=== PATIENT | female | born 1945 | race Caucasian/White ===

== ENCOUNTER 2024-05-02 09:02 | Observation (INO) ==
[2024-05-02] MEDS ORDERED: IOPAMIDOL 100 ML BOTTLE IV ONE (09:03)
[2024-05-02 09:38] LABS: Basophils % (Auto) 0.7 % (0.0-2.0); Eosinophils % (Auto) 4.6 % (0.0-7.0); Hematocrit 42.7 % (34.1-44.9); Hemoglobin 13.9 g/dL (11.2-15.7); Lymphocytes % (Auto) 25.5 % (15.5-49.0); Mean Cell Volume 92.6 fL (80.0-100.0); Mean Corpuscular HGB Conc 32.6 g/dL (31.0-36.0); Mean Platelet Volume 10.1 fL (8.8-12.5); Monocytes % (Auto) 7.4 % (1.0-12.0); Neutrophils % (Auto) 61.7 % (38.0-78.0); Platelet Count 197 K/mcL (140-440); RBC 4.61 M/mcL (3.59-5.38); Red Cell Distribution Width 12.4 % (11.5-14.5); WBC 7.3 K/mcL (4.5-11.0)
[2024-05-02 09:39] LABS: Basophils # (Auto) 0.05 K/mcL (0.00-0.30); Eosinophils # (Auto) 0.33 K/mcL (0.00-0.70); Lymphocytes # (Auto) 1.85 K/mcL (1.50-4.80); Monocytes # (Auto) 0.54 K/mcL (0.10-0.90)
[2024-05-02 10:06] LABS: INR 0.9 (0.9-1.1); Prothrombin Time 13.1 sec (11.9-14.5)
[2024-05-02 10:14] LABS: ALT/SGPT < 5 U/L (<40); AST/SGOT 21 U/L (<32); Albumin 4.1 gm/dL (3.2-5.2); Albumin/Globulin Ratio 1.6 (1.0-2.3); Alkaline Phosphatase 85 U/L (39-117); Bilirubin,Total 0.6 mg/dL (0.1-1.0); Blood Urea Nitrogen 10 mg/dL (8-23); Calcium 9.1 mg/dL (8.6-10.4); Carbon Dioxide 24 mmol/L (22-30); Chloride 107 mmol/L (96-108); Globulin 2.6 gm/dL (2.2-3.7); Glomerular Filtration Rate 69; Glucose 101 mg/dL (70-105); Potassium 4.2 mmol/L (3.3-5.1); Sodium 141 mmol/L (133-145)
[2024-05-02 11:30] LABS: Appearance,Urine Clear (Clear); Bilirubin,Urine Negative (Negative); Color,Urine Yellow; Culture Indicated,Urine No; Glucose,Urine (UA) Negative (Negative); Ketones,Urine Negative (Negative); Leukocyte Esterase,Urine Negative /uL (Negative); Nitrate,Urine Negative (Negative); PH,Urine 7.5 (5.0-9.0); Protein,Urine Negative (Negative); Specific Gravity,Urine 1.015 (1.000-1.035); Urine Blood Negative ery/mcL (Negative); Urine RBC 0 /hpf (0-3); Urine Squamous Epithelial Cell 0 /hpf (0-4); Urine WBC 0 /hpf (0-4); Urobilinogen,Urine Normal
[2024-05-02] MEDS: MECLIZINE 25 MG TABLET PO ONE (12:08)
[2024-05-02] MEDS: ATORVASTATIN 40 MG TABLET PO ONE (12:37)
[2024-05-02] MEDS: ASPIRIN 81 MG TAB.CHEW CHEWED ONE (12:37)
[2024-05-02] MEDS ORDERED: SENNOSIDES 1 TABLET PO PRN (17:32)
[2024-05-02] MEDS ORDERED: POLYETHYLENE GLYCOL 3350 17 GM PACKET PO PRN (17:32)
[2024-05-02] MEDS ORDERED: ONDANSETRON 4 MG/2 ML VIAL IV PRN (17:32)
[2024-05-02] MEDS: ACETAMINOPHEN 325 MG TABLET PO PRN (19:32)
[2024-05-02] MEDS: ACETAMINOPHEN 325 MG TABLET PO ONE (19:35)
[2024-05-02] MEDS: 0.9 % SODIUM CHLORIDE 10 ML SYRINGE IV SCH (21:41)
[2024-05-02] MEDS: traZODone HCL 50 MG TABLET PO PRN (21:41)
[2024-05-02] MEDS: HEPARIN 5,000 UNIT/ML VIAL SQ SCH (21:41)
[2024-05-03 06:48] LABS: Basophils # (Auto) 0.07 K/mcL (0.00-0.30); Eosinophils # (Auto) 0.36 K/mcL (0.00-0.70); Hematocrit 38.8 % (34.1-44.9); Hemoglobin 12.9 g/dL (11.2-15.7); Lymphocytes # (Auto) 2.35 K/mcL (1.50-4.80); Lymphocytes % (Auto) 32.4 % (15.5-49.0); Mean Cell Volume 92.2 fL (80.0-100.0); Mean Corpuscular HGB Conc 33.2 g/dL (31.0-36.0); Mean Platelet Volume 10.2 fL (8.8-12.5); Monocytes # (Auto) 0.53 K/mcL (0.10-0.90); Monocytes % (Auto) 7.3 % (1.0-12.0); Neutrophils % (Auto) 54.2 % (38.0-78.0); Platelet Count 167 K/mcL (140-440); RBC 4.21 M/mcL (3.59-5.38); Red Cell Distribution Width 12.5 % (11.5-14.5); WBC 7.3 K/mcL (4.5-11.0)
[2024-05-03 07:28] LABS: Blood Urea Nitrogen 13 mg/dL (8-23); Calcium 8.7 mg/dL (8.6-10.4); Carbon Dioxide 23 mmol/L (22-30); Chloride 110 mmol/L (96-108); Glomerular Filtration Rate 69; Glucose 91 mg/dL (70-105); Potassium 3.8 mmol/L (3.3-5.1); Sodium 145 mmol/L (133-145)
[2024-05-03 07:42] LABS: Thyroid Stimulating Hormone 2.62 uIU/mL (0.27-5.01)
[2024-05-03] MEDS: ASPIRIN 81 MG TAB.CHEW CHEWED SCH (08:18)
[2024-05-03 11:36] LABS: HDL Cholesterol 41 mg/dL (>40); LDL Cholesterol,Calculated 126 mg/dL (<100); Non-HDL Cholesterol 148 mg/dL (<130); Triglycerides 112 mg/dL (<150)
[2024-05-03 11:45] LABS: Estimated Average Glucose(eAG) 114 mg/dL; Hemoglobin A1C 5.6 % Hgb (4.0-6.0)
[2024-05-03] MEDS: ATORVASTATIN 40 MG TABLET PO SCH (21:28)
[2024-05-04] MEDS: LOSARTAN 50 MG TABLET PO SCH (08:44)
== END 2024-05-04 11:48 | disposition home or self-care (01) ==
LOC: ED 09:02 → MEDSUR 09:02
PROVIDERS: ADMIT Student in an Organized Health Care Education/Training Program; ATTEND Internal Medicine